=== PATIENT | female | born 1960 | race Caucasian/White ===

== ENCOUNTER 2018-10-31 15:21 | Emergency (ER) | payer OTHER, SELFPAY ==
[2018-10-31 15:22] VITALS: BP 136/84; PULSE 73; RESP 16; TEMP 36.6; O2SAT 98; BMI 37.8
--- NOTE | 2018-10-31 16:27 | RAD_ITS ---
STUDY: X-RAY - RIGHT KNEE REASON FOR EXAM: Female, 58 years old. Fall on Friday, pain and bruising TECHNIQUE: 4 view(s) of the knee. COMPARISON: None. FINDINGS: Normal visualized distal femur. Normal visualized proximal tibia and fibula. Normal proximal tibiofibular articulation. There is moderate degenerative arthrosis of the medial femorotibial compartment with moderate joint space narrowing. Normal lateral femorotibial compartment. There is mild degenerative arthrosis of the patellofemoral articulation. There is mild prepatellar soft tissue swelling. RAD/Knee 4 or More Views IMPRESSION: No fracture or malalignment. Degenerative changes. Prepatellar soft tissue swelling. Electronically Signed: Aniket Medrano MD at 18:49 EST , Service support ,
--- NOTE | 2018-10-31 16:27 | RAD_ITS ---
STUDY: X-RAY - RIGHT TIBIA AND FIBULA REASON FOR EXAM: Female, 58 years old. Fall on Friday, pain TECHNIQUE: AP and lateral view(s) of the tibia and fibula were obtained. COMPARISON: None. FINDINGS: Normal visualized tibia. Normal visualized fibula. Calcaneal spur demonstrated. Soft tissue swelling the lateral anterior lower leg. RAD/Tibia & Fibula 2 Views IMPRESSION: Soft tissue swelling without demonstrated fracture. Electronically Signed: Aniket Medrano MD at 18:50 EST , Service support ,
--- NOTE | 2018-10-31 16:45 | RAD_ITS ---
STUDY: X-RAY - RIGHT FOOT CLINICAL: Female, 58 years old. Fall on Friday, right foot pain TECHNIQUE: 3 view(s) of the foot. COMPARISON: None. FINDINGS: There is a plantar calcaneal spur. Degenerative narrowing of the tarsal-metatarsal articulation. Normal metatarsi. There is degenerative arthrosis of the metatarsophalangeal joint of the hallux . Normal tibial and fibular sesamoid bones. Normal interphalangeal joint of the great toe. Normal phalanges of the great toe. Normal second through fifth metatarsophalangeal joints. Normal interphalangeal joints and phalanges of the lesser toes. The soft tissue structures are unremarkable. RAD/Foot min 3 Views IMPRESSION: 1. No fracture or malalignment. Degenerative changes. Electronically Signed: Aniket Medrano MD at 18:47 EST , Service support ,
[2018-10-31 18:41] VITALS: BP 142/79; PULSE 76; RESP 16; O2SAT 96
--- NOTE | 2018-10-31 19:18 | VDLE_ITS ---
Reason For Study: SWELLING RIGHT CFV is compressible, spontaneous, phasic, competent and demonstrates normal augmentation. FV is compressible, spontaneous, phasic, competent and demonstrates normal augmentation. POP V is compressible, spontaneous, phasic, competent and demonstrates normal augmentation. T/P Trunk is compressible. PTV is compressible. RT PerV is compressible. Rt GSV is not visualized s/p ablation. Procedure Exam performed in department. A preliminary report was called and/or faxed to ED. Interpretation Summary Deep veins of the right lower extremity are patent and compressible segmentally. There is no evidence of right lower extremity deep vein thrombosis. Valvular competence appears intact within the proximal deep venous system on the right . The right great saphenous vein was not visualized. Ordering Physician: Celi Parnell Referring Physician: SHANEL DIETZ Performed By: Marlen Will, MAXIMILIAN, RVT
--- NOTE | 2018-10-31 19:18 | ED.DEP ---
ED Disposition - Plan for ED Patient: Instructions: ED Contusion Lower Ext Referrals: Jona Kwan MD [Primary Care Provider] -
--- NOTE | 2018-10-31 19:21 | ED.DEP ---
ED Disposition - Plan for ED Patient: Instructions: ED Contusion Lower Ext Prescriptions: Clindamycin [Cleocin] 300 mg PO 4X/DAY #80 capsule Referrals: Jona Kwan MD [Primary Care Provider] -
--- NOTE | 2018-10-31 19:23 | ED.VISSUMM ---
- ER Visit Summary Date of Service: 10/31/18 Chief Complaint: Right lower extremity injury History of Present Illness: The patient is a 58 F presenting with right lower extremity injury. Patient fell on Friday. She states she tripped over a bench and fell injuring her right leg. She did not hit her head or lose consciousness. She has been able to ambulate with pain. She states she was able to work the following day. She is on her feet all day. She presents due to persistent pain in her right knee. She denies other complaints. Physical Examination: Vitals are stable. Patient is afebrile. Alert no acute distress. HEENT exam is unremarkable. Neck is supple. Lungs are clear and equal bilaterally. Heart is regular rate and rhythm. Extremities right lower extremity ecchymosis from proximal knee to lateral foot. Ecchymosis is not circumferential. Compartments are soft. Soft tissue swelling. Normal distal pulses. She is able to range her knee without difficulty. She has an abrasion to the anterior knee with mild surrounding erythema. Skin is warm and dry. No focal neurologic deficit. Remainder of exam is unremarkable. Emergency Department Course and Treatment: X-ray right foot, tib-fib, knee show no acute fracture, soft tissue swelling. She is advised to ice and elevate. She is concerned about possibility of blood clot. Ultrasound is not available at this time of day. She was given a order for ultrasound in the morning. She is concerned about abrasion to her knee becoming infected. She is given a prescription for clindamycin due to penicillin allergy. She has active full range of motion of her knee, she is advised to return to the ED if this worsens. Advised to follow up with primary care physician. Disposition: Discharge home Impression: Right lower extremity contusion This note was generated with [employer] dictation software. It may contain incorrect words, spelling, and punctuation that were not noted in review of the chart prior to signing ED Disposition - Plan for ED Patient: Instructions: ED Contusion Lower Ext Prescriptions: Clindamycin [Cleocin] 300 mg PO 4X/DAY #80 capsule Referrals: Jona Kwan MD [Primary Care Provider] -
== END 2018-10-31 19:41 | disposition home or self-care (01) ==
PROVIDERS: Emergency Provider Emergency Medicine; Family Provider Family Medicine; PCP Family Medicine
DX: S80.11XA Contusion of right lower leg, initial encounter (principal); S80.211A Abrasion, right knee, initial encounter; W18.09XA Striking against other object with subsequent fall, initial encounter; Y93.9 Activity, unspecified; Y92.9 Unspecified place or not applicable; I10 Essential (primary) hypertension; Z79.82 Long term (current) use of aspirin; Z79.899 Other long term (current) drug therapy
CPT/HCPCS: 73564; 73590; 73630; 93971; 99282

== ENCOUNTER 2020-06-10 13:10 | Emergency (ER) | payer OTHER, SELFPAY ==
[2020-06-10 13:12] VITALS: BP 151/87; PULSE 77; RESP 18; TEMP 36.3; O2SAT 95; BMI 25.8
--- NOTE | 2020-06-10 13:29 | EKG12_ITS ---
Test Reason : CP Blood Pressure : / mmHG Vent. Rate : 079 BPM Atrial Rate : 079 BPM P-R Int : 132 ms QRS Dur : 078 ms QT Int : 386 ms P-R-T Axes : 051 031 029 degrees QTc Int : 442 ms Sinus rhythm with Premature atrial complexes Otherwise normal ECG Confirmed by MADISON CRAWFORD, BETTY ([id number]), film or videotape editor NEGRO CRAIG ([id number]) on 06/14/2020 11:32:33 AM Referred By: Confirmed By:BETTY WALLACE MD
--- NOTE | 2020-06-10 13:29 | RAD_ITS ---
STUDY: X-RAY CHEST REASON FOR EXAM: Female, 60 years old. sudden onset of CP TECHNIQUE: Single view of the chest was obtained COMPARISON: None. FINDINGS: No consolidative process, pleural effusion or pneumothorax. Cardiac size is stable. Slightly elevated right hemidiaphragm. IMPRESSION: No acute cardiac pulmonary pathology. Electronically Signed: Vaibhav Fiore, at 14:24 EDT Tel , Service support , RAD/Chest 1 View (Portable)
[2020-06-10 13:43] VITALS: O2SAT 97
[2020-06-10 13:43] LABS: Absolute Lymphocyte Count 1.41 X10^3/uL (0.83-4.51); Absolute Neutrophil Count 5.7 X10^3/uL (2.0-7.7); Basophil# 0.03 X10^3/uL; Basophil% 0.4 % (0-1); Eosinophil# 0.14 X10^3/uL; Eosinophils% 1.8 % (0-5); Hematocrit 39.3 % (37-47); Hemoglobin 12.9 g/dL (12.0-15.0); Lymphocyte # 1.41 X10^3/ul (4.0); Lymphocyte % 17.9 % (19-41); Mean Corp Hgb Conc 32.8 g/dL (32-36); Mean Corpuscular Hgb 30.2 pg (27.0-32.0); Mean Platelet Vol. 10.7 fl (6.2-12.0); Monocyte# 0.55 X10^3/uL; NRBC Flagged by Analyzer 0 % (0-5); Neutrophil # 5.71 X10^3/uL (2.7-7.7); Neutrophil % 72.6 % (47-70); Platelet Count 236 K/mm3 (150-450); RBC Distribution Width CV 13.2 % (11.6-14.6); RBC Distribution Width SD 44.1 fl (35.1-43.9); Red Blood Count 4.27 M/mm3 (4.2-5.4); White Blood Count 7.9 K/mm3 (4.4-11.0)
[2020-06-10] MEDS: Morphine 4 MG/ML Syringe IV (13:43)
[2020-06-10] MEDS: Ondansetron 4 MG/2 ML Vial IV (13:43)
[2020-06-10 14:05] LABS: Anion Gap 3 (5-15); BUN 13 mg/dL (7-18); BUN/Creat Ratio 12.6 RATIO (10-20); Calcium,Total 8.7 mg/dL (8.5-10.1); Chloride 107 mmol/L (98-107); Creatinine, Serum 1.03 mg/dL (0.55-1.02); EST Glomerular Filtration Rate 58 mL/min (>60); Est Glom Filt Rate - Afr Amer 70 mL/min (>60); Estimated Creatinine Clearance 56.48 ml/min; Glucose 91 mg/dL (74-106); Sodium Level 142 mmol/L (136-145)
--- NOTE | 2020-06-10 14:21 | ED.VIS.GEN ---
History of Present Illness Chief Complaint: Chest Pain Informant: Patient Onset: Month(s) Maximum Severity: Mild Narrative: Patient complains of epigastric pain for months, these are paroxysmal spasms of pain they are sharp and stabbing she has history of gastritis, she has no history of [place] PE or DVT, she has a prior history for cholecystectomy almost 20 years ago, she indicates she believes the symptoms of epigastric pain are worse when she is at work wearing her mask they are not necessarily associated with exertion or food her bowel bladder habits are normal, she has no exposures to coronavirus no fever cough she is able to eat and drink without difficulty, she had lumbar back surgery a few years ago and recalls having a cardiac stress test that showed no signs of cardiovascular disease She was scheduled to see her physicians for this condition, however the physician's office canceled when she tried to reschedule they suggest that she come to the emergency department for evaluation Past Medical History - Allergies and Home Meds Allergies/Adverse Reactions: Allergies diclofenac sodium [From Voltaren] Allergy (Verified 06/10/20 13:10) Unknown doxepin Allergy (Verified 06/10/20 13:10) Unknown latex Allergy (Verified 06/10/20 13:10) Anaphylaxis lisinopril Allergy (Verified 06/10/20 13:10) Unknown naproxen Allergy (Verified 06/10/20 13:10) Unknown naproxen sodium [From Aleve] Allergy (Verified 06/10/20 13:10) Unknown Penicillins Allergy (Verified 06/10/20 13:10) Unknown Primary Care Physician: Jona Kwan MD [Primary Care Provider] - Past Medical History: - Surgical History: cholecystectomy, tonsillectomy, - Smoking Status: Never smoker - Family History Maternal Family History: Reports: No pertinent history Paternal Family History: Reports: No pertinent history Review of Systems ROS: - Clues as above General: Denies: Chills, Fever, Sweats Eyes: Denies: Visual changes - bilaterally, Diplopia ENT: Denies: Rhinorrhea, Sore throat Cardiovascular: Reports: Chest pain. Denies: Palpitations Respiratory: Denies: Dyspnea, Cough, Dyspnea on exertion Gastrointestinal: Reports: Abdominal pain, - - Directly to her epigastric area as the focus of her pain she declines to really describe this is chest pain. Denies: Nausea, Vomiting, Diarrhea, Melena, Hematochezia Genitourinary: Denies: Dysuria, Hematuria, Frequency Musculoskeletal: Denies: Back pain, Extremity Pain Skin: Denies: Rash, Wounds Neurological: Denies: Headache, Weakness, Numbness Physical Exam Vital Signs/Narrative: Vital Signs Temp Pulse Resp BP Pulse Ox 06/10/20 13:43 97 06/10/20 13:12 97.4 F L 77 18 151/87 H 95 General: Well nourished, Well developed, No Acute Distress Head: Normocephalic, Atraumatic Eyes: Perrl, EOMI ENT: Moist mucous membranes, No rhinorrhea Neck: Supple, Nontender Cardiovascular: Regular rate, Regular rhythm, No murmurs Respiratory: No distress, CTA bilaterally, Chest nontender Abdomen: Soft, Nontender, Nondistended, Normal bowel sounds Back: Nontender, Normal Inspection Extremities: Nontender, No edema Skin: Normal color, No rash Neurological: Alert, Oriented x3, Cranial nerves II-XII grossly intact, Normal Strength, Normal Sensation Psychological: Normal affect, Normal Mood Diagnostic/Tx/Re-eval - Medical Decision Making His vital signs and physical exam are unremarkable, the patient's EKG shows a sinus rhythm no acute injury pattern rate 79 we discussed exertional symptoms exertional chest pain she declines that she states when she is at home not wearing her mask the symptoms are less prominent Given her age and all the above screening labs are obtained The patient's ED screening evaluation results are generally unremarkable see those reports, on reevaluation she remains asymptomatic, I discussed the test results with her, we discussed inpatient versus outpatient management and the differential she understands all the above she has had these symptoms intermittently for months she does not wish to be admitted she prefers outpatient management she only came to the emergency department she informs me it was because when her physicians were rescheduling her appointments they recommended she come to the hospital She understands she needs additional outpatient management diagnostic studies etc. she will obtain them and return for change in symptoms Home stable declined admission Impression final epigastric discomfort paroxysmal etiology unclear ED Disposition - Plan for ED Patient: Diagnosis: Chest pain Instructions: ED Chest Pain Atypical Unkn Cause Referrals: Jona Kwan MD [Primary Care Provider] -
[2020-06-10 14:44] LABS: AST(SGOT) 15 U/L (15-37); Alanine Aminotransfer ALT/SGPT 24 U/L (13-56); Albumin, Serum 3.3 g/dL (3.2-5.0); Alkaline Phosphatase 110 U/L (45-117); Bilirubin, Direct 0.15 mg/dL (0.00-0.30); Globulin 3.4 g/dL (2.2-4.2); Lipase 141 U/L (73-393); Protein, Total 6.7 g/dL (6.4-8.2)
[2020-06-10 15:32] VITALS: BP 134/78; PULSE 69; RESP 18; O2SAT 99
== END 2020-06-10 15:33 | disposition home or self-care (01) ==
LOC: ED 14:20
PROVIDERS: Emergency Provider Emergency Medicine; PCP Family Medicine
DX: R07.89 Other chest pain (principal); Z87.19 Personal history of other diseases of the digestive system; Z90.49 Acquired absence of other specified parts of digestive tract
CPT/HCPCS: 71045; 80048; 80076; 83690; 84484; 85025; 93005; 96361; 96374; 96375; 99283; A4216; J2405